=== PATIENT | female | born 1990 | race African-American/Black ===

== ENCOUNTER 2017-10-30 09:47 | Emergency (ER) | payer SELFPAY ==
--- NOTE | 2017-10-30 10:09 | ER Document Report ---
HPI - HPI Pain Level: 2 Notes: Patient is a 27-year-old female no significant past medical history presents ED complaining of red swollen area underneath her right axilla 4-5 days. Patient states that it was draining earlier in the week, but that has since stopped and has become swollen. Patient has not noticed any red streaks. She still eating and drinking without any difficulties. Denies any history of MRSA or IV drug use. Denies any drug allergies. Denies any headache, fever, neck pain, URI, sore throat, chest pain, palpitations, syncope, cough, shortness of breath, wheeze, dyspnea, abdominal pain, nausea/vomiting/diarrhea,dysuria, hematuria. - ROS Notes: REVIEW OF SYSTEMS: CONSTITUTIONAL : Denies fever, chills, or sweats. Denies recent illness. EENT: Denies eye, ear, throat, or mouth pain or symptoms. Denies nasal or sinus congestion or discharge. Denies throat, tongue, or mouth swelling or difficulty swallowing. CARDIOVASCULAR: Denies chest pain. Denies palpitations or racing or irregular heart beat. RESPIRATORY: Denies cough, cold, or chest congestion. Denies shortness of breath, difficulty breathing, or wheezing. GASTROINTESTINAL: Denies abdominal pain or distention. Denies nausea, vomiting , or diarrhea. GENITOURINARY: Denies difficulty urinating, painful urination, burning, frequency, blood in urine, or discharge. MUSCULOSKELETAL: Denies back or neck pain or stiffness. Denies joint pain or swelling. SKIN: see hpi NEUROLOGICAL: Denies dizziness or lightheadedness. Denies headache. Denies weakness or paralysis or loss of use of either side. Denies sensory loss, numbness, or tingling. ALL OTHER SYSTEMS REVIEWED AND NEGATIVE. Dictation was performed using [employer] recognition software - CONSTITUTIONAL Constitutional: DENIES: Fever, Chills - REPRODUCTIVE Reproductive: REPORTS: : - MUSCULOSKELETAL Musculoskeletal: DENIES: Extremity pain Past Medical History - Social History Smoking Status: Never Smoker Chew tobacco use (# tins/day): No Frequency of alcohol use: None Drug Abuse: None Family History: Reviewed & Not Pertinent Patient has suicidal ideation: No Patient has homicidal ideation: No Renal/ Medical History: Denies: Hx Peritoneal Dialysis - Immunizations Hx Diphtheria, Pertussis, Tetanus Vaccination: Yes Vertical Provider Document - CONSTITUTIONAL Agree With Documented VS: Yes Notes: PHYSICAL EXAMINATION: GENERAL: Well-appearing, well-nourished and in no acute distress. NECK: Normal range of motion, supple without lymphadenopathy LUNGS: Breath sounds clear to auscultation bilaterally and equal. No wheezes rales or rhonchi. HEART: Regular rate and rhythm without murmurs, rubs, gallops. Musculoskeletal: Rt UE: FROM to passive/active. Strength 5+/5. Extremities: No cyanosis, clubbing, or edema b/l. Peripheral pulses 2+. Capillary refill less than 3 seconds. NEUROLOGICAL: Cranial nerves grossly intact. Normal speech, normal gait. Normal sensory, motor exams PSYCH: Normal mood, normal affect. SKIN: + abscess rt axilla approx 2cm diameter. + tenderness and fluid pocket noted. No red streaks or purulence. - INFECTION CONTROL TRAVEL OUTSIDE OF THE [place] IN LAST 30 DAYS: No - RESPIRATORY O2 Sat by Pulse Oximetry: 97 Course - Re-evaluation Re-evalutation: 10/30/17 10:50 Patient is an afebrile, well-hydrated, 27-year-old female who presents ED with an abscess to her right axilla. Vitals are stable. PE is otherwise unremarkable. Incision and drainage was performed successfully without any complications. Wound culture obtained. Wound dressing placed and wound instructions reviewed. I will send her home with a prescription for Keflex and Bactrim to take as directed. Conservative measures for symptoms otherwise. Recheck with your PCM in 2-3 days for a wound check and possible packing replacement. Return to the ED with any worsening/concerning symptoms otherwise as reviewed in discharge. Patient is in agreement. - Vital Signs Vital signs: Temp Pulse Resp BP Pulse Ox 98.7 F 110 H 20 141/86 H 97 10/30/17 09:52 10/30/17 09:52 10/30/17 09:52 10/30/17 09:52 10/30/17 09:52 Procedures - Incision and Drainage Right Arm Time completed: 10:45 Type: Simple Anesthetic type: 1% Lidocaine mL's of anesthetic: 5 Blade size: 11 I&D procedure: Iodoform packing placed, Sterile dressing applied, Other - chlorhexadine Incision Method: Incision made by scalpel Amount/type of drainage: moderate purulent Notes: 10/30/17 10:08 Pt tolerated procedure well no complications packing placed Discharge - Discharge Clinical Impression: Abscess Condition: Stable Disposition: HOME, SELF-CARE Instructions: Abscess ([facility]), Cephalexin ([facility]), Post Incision and Drainage, Trimethoprim-Sulfa ([facility]) Additional Instructions: Do not shower or bathe for 24 hours. After 24 hours she may shower but no submersion of the wound under water. Keep the original dressing on the wound for 24 hours unless the drainage soaks through. Change the dressing daily thereafter and use a small amount of triple antibiotic ointment over the open wound. Return to the ED and/or your PCM in 2-3 days for recheck and continue direction for wound packing. Monitor for any signs of worsening pain or redness , streaks, and/or fever. Return to the ED if noticing any of the above symptoms or as needed. Take medications as directed. Prescriptions: Cephalexin Monohydrate [Keflex 500 mg Capsule] 500 mg PO BID #20 capsule Sulfamethoxazole/Trimethoprim [Bactrim Ds Tablet] 1 each PO BID #20 tablet Forms: Elevated Blood Pressure Referrals: [facility] [Provider Group] - Follow up as needed [facility] [Provider Group] - Follow up as needed
[2017-10-30 12:00] VITALS: BP 122/79
== END 2017-10-30 11:10 | disposition home or self-care (01) ==
LOC: ER 09:47
PROC: 0H9BXZZ Drainage of Right Upper Arm Skin, External Approach (ICD-10-PCS; principal; 2017-10-30)
DX: L02.411 Cutaneous abscess of right axilla (principal)
CPT/HCPCS: 99283; 87070; 87205; 87075; 87077; 10060; A6266

== ENCOUNTER 2017-11-03 13:47 | Emergency (ER) | payer SELFPAY ==
--- NOTE | 2017-11-03 14:21 | ER Document Report ---
ED Wound - General Chief Complaint: Wound Recheck Stated Complaint: RECHECK ABSCESS Time Seen by Provider: 11/03/17 14:06 Mode of Arrival: Ambulatory Information source: Patient Notes: Patient is a 27-year-old black female who comes back to the emergency room for a wound recheck. She had an incision and drainage done on the and was placed on Bactrim and Keflex. She comes back today for the recheck telling me that she has not filled antibiotics yet. She states it has been draining and she has been using moist warm compresses. She denies any current fever or other symptoms at this time. TRAVEL OUTSIDE OF THE [place] IN LAST 30 DAYS: No - HPI Patient complains to provider of: Other - Incision and drainage Occurred: Other - 4 days ago Onset/Duration: Persistent Quality of pain: Achy Pain Level: 1 Skin Temperature: Warm Skin Color: Normal Sensations intact: Yes Distal pulses present: Yes Associated Symptoms: Drainage - Related Data Allergies/Adverse Reactions: No Known Allergies Allergy (Verified 10/30/17 09:48) Past Medical History - General Information source: Patient Last Menstrual Period: Last week - Social History Smoking Status: Never Smoker Cigarette use (# per day): No Chew tobacco use (# tins/day): No Smoking Education Provided: No Family History: Reviewed & Not Pertinent Renal/ Medical History: Denies: Hx Peritoneal Dialysis - Immunizations Hx Diphtheria, Pertussis, Tetanus Vaccination: Yes Review of Systems - Review of Systems Constitutional: No symptoms reported EENT: No symptoms reported Cardiovascular: No symptoms reported Respiratory: No symptoms reported Gastrointestinal: No symptoms reported Genitourinary: No symptoms reported Female Genitourinary: No symptoms reported Musculoskeletal: No symptoms reported Skin: See HPI Hematologic/Lymphatic: No symptoms reported Neurological/Psychological: No symptoms reported -: Yes All other systems reviewed and negative Physical Exam - Vital signs Vitals: Temp Pulse Resp BP Pulse Ox 98.2 F 96 18 139/82 H 97 11/03/17 14:01 11/03/17 14:01 11/03/17 14:01 11/03/17 14:01 11/03/17 14:01 Interpretation: Hypertensive - General General appearance: Appears well In distress: None - Respiratory Respiratory status: No respiratory distress Chest status: Nontender Breath sounds: Normal. No: Decreased air movement, Nonproductive cough, Productive cough, Rales, Rhonchi, Stridor, Wheezing, Other - Cardiovascular Rhythm: Regular Heart sounds: Normal auscultation Murmur: No - Extremities General upper extremity: Normal inspection, Normal ROM General lower extremity: Normal inspection, Normal ROM - Skin Skin Temperature: Warm Skin Moisture: Dry Skin Color: Other - Examination of patient's right axilla shows her to be a draining pussy presentation. There is mild erythema around the external portion of the incision incision looks clean. Removal of the iodoform showed approximately 7-8 inches that was removed without any complications. The internal portion that is visualized of the incision looks beefy nice and clean and pressure applied around the open I&D area has no more drainage. Course - Vital Signs Vital signs: Temp Pulse Resp BP Pulse Ox 98.2 F 96 18 139/82 H 97 11/03/17 14:01 11/03/17 14:01 11/03/17 14:01 11/03/17 14:01 11/03/17 14:01 - Transfer of Care Notes: 11/03/17 14:24 As stated earlier in H&P patient has not filled the Bactrim and Keflex. She states she has not turned it in yet. We have had a long discussion on this and informed her that she will be back with an infected area again if she does not take the antibiotics. Given that said removal of the packing shows the wound to be healing. There is no more expressible material that this forced out. And again the area around the open incision shows nice beefy color flash. We will not repack it at this time secondary to go drainage began stopped and the wound appearing better. Discharge - Discharge Clinical Impression: Encounter for wound re-check Condition: Good Disposition: HOME, SELF-CARE Additional Instructions: Abscess You have an abscess (boil). This a pus-forming infection, usually due to staph. Some boils may be left to drain on their own, but most require lancing. From the time the tender lump first appears, it may be three or four days before the abscess is ready to delroy. Local heat and rest help at this stage of treatment. An antibiotic may prevent spread of the infection. Once the abscess is opened, packing may be placed into it. This is done so pus is not sealed inside by premature closure of the cavity. The packing will be removed at your follow-up visit or you may be advised to remove it yourself at home. Sometimes this packing must be replaced a few times during healing. The wound will heal with surprisingly little scar. Depending on the size and location of an abscess, healing can take one to four weeks. You may shower and wash the area around the incision site two or three times a day. Antibiotics may be prescribed, but are usually not necessary after an abscess has been drained. If you develop fever, chilling, worsening pain, or increasing swelling in the area, call the doctor or return immediately. As we discussed is highly important that you get the antibiotics and fill them. The wound actually looks fairly well for no antibiotics however if it closes up he would get reinfected. Continue using warm moist compresses at least 3 times a day. Should you have any problems or concerns return to ER for recheck. Forms: Elevated Blood Pressure
[2017-11-03 14:51] VITALS: BP 130/80
== END 2017-11-03 14:50 | disposition home or self-care (01) ==
LOC: ER 13:47
DX: L02.411 Cutaneous abscess of right axilla (principal)
CPT/HCPCS: 99282

== ENCOUNTER 2019-03-03 17:27 | Emergency (ER) | payer SELFPAY ==
--- NOTE | 2019-03-03 18:48 | ER Document Report ---
ED Medical Screen (RME) - General Chief Complaint: Abdominal Pain Stated Complaint: STOMACH PAIN Time Seen by Provider: 03/03/19 18:47 Mode of Arrival: Ambulatory Information source: Patient Notes: 28-year-old female presented to ED for complaint of abdominal pain with back pain and nausea times 2-3 days. She denies any vomiting or diarrhea. She denies any fevers. She is alert oriented respirations regular and unlabored lungs clear to auscultations abdomen soft with hyperactive bowel sounds. Patient does have pain to palpation bilaterally upper and lower. I have greeted and performed a rapid initial assessment of this patient. A comprehensive ED assessment and evaluation of the patient, analysis of test results and completion of medical decision making process will be conducted by an additional ED providers. TRAVEL OUTSIDE OF THE [place] IN LAST 30 DAYS: No - Related Data Allergies/Adverse Reactions: No Known Allergies Allergy (Verified 03/03/19 17:40) Past Medical History - Social History Chew tobacco use (# tins/day): No Frequency of alcohol use: None Drug Abuse: None Renal/ Medical History: Denies: Hx Peritoneal Dialysis - Immunizations Hx Diphtheria, Pertussis, Tetanus Vaccination: Yes Physical Exam - Vital signs Vitals: Temp Pulse Resp BP Pulse Ox 98.7 F 93 16 129/85 H 100 03/03/19 18:15 03/03/19 18:15 03/03/19 18:15 03/03/19 18:15 03/03/19 18:15 Course - Vital Signs Vital signs: Temp Pulse Resp BP Pulse Ox 98.7 F 93 16 129/85 H 100 03/03/19 18:15 03/03/19 18:15 03/03/19 18:15 03/03/19 18:15 03/03/19 18:15
[2019-03-03 19:02] LABS: APPEARANCE,URINE CLEAR; BILIRUBIN,URINE NEGATIVE (NEGATIVE); COLOR,URINE YELLOW; GLUCOSE, URINE NEGATIVE (NEGATIVE); KETONES,URINE NEGATIVE (NEGATIVE); LEUKOCYTE ESTERASE,URINE SMALL (NEGATIVE); NITRITE,URINE NEGATIVE (NEGATIVE); PROTEIN,URINE NEGATIVE (NEGATIVE); URINE SPECIFIC GRAVITY 1.008; UROBILINOGEN,URINE NEGATIVE mg/dL (<2.0)
[2019-03-03 19:29] LABS: ABSOLUTE BASOPHILS # (AUTO) 0.1 10^3/uL (0.0-0.2); ABSOLUTE EOSINOPHILS # (AUTO) 0.1 10^3/uL (0.0-0.6); ABSOLUTE MONOCYTES (AUTO) 0.5 10^3/uL (0.1-1.4); ABSOLUTE NEUT (AUTO) 6.4 10^3/uL (1.7-8.2); BASOPHILS % (AUTO) 0.6 % (0-2); EOSINOPHILS % (AUTO) 0.7 % (0-6); HEMATOCRIT 34.2 % (36.0-47.0); HEMOGLOBIN 11.5 g/dL (12.0-15.5); LYMPHOCYTES % (AUTO) 22.1 % (13-45); MEAN CORPUSCULAR HEMOGLOBIN 25.4 pg (27.0-33.4); MEAN CORPUSCULAR HGB CONC 33.5 g/dL (32.0-36.0); MEAN CORPUSCULAR VOLUME 76 fl (80-97); MONOCYTES % (AUTO) 5.9 % (3-13); PLATELET COUNT 271 10^3/uL (150-450); RED BLOOD COUNT 4.52 10^6/uL (3.72-5.28); RED CELL DISTRIBUTION WIDTH 15.5 % (11.5-14.0); SEGMENTED NEUTROPHILS % (AUTO) 70.7 % (42-78); TOTAL CELLS COUNTED % (AUTO) 100 %; WHITE BLOOD COUNT 9.1 10^3/uL (4.0-10.5)
[2019-03-03 19:47] LABS: ALANINE AMINOTRANSFERASE 25 U/L (9-52); ALBUMIN 4.4 g/dL (3.5-5.0); ALKALINE PHOSPHATASE 64 U/L (38-126); ANION GAP 10 (5-19); ASPARTATE AMINO TRANSFERASE 17 U/L (14-36); BILIRUBIN,DIRECT 0.1 mg/dL (0.0-0.4); BILIRUBIN,TOTAL 1.7 mg/dL (0.2-1.3); BLOOD UREA NITROGEN 8 mg/dL (7-20); CALCIUM 9.5 mg/dL (8.4-10.2); CARBON DIOXIDE 25 mmol/L (22-30); CHLORIDE 105 mmol/L (98-107); GLUCOSE 101 mg/dL (75-110); POTASSIUM 4.1 mmol/L (3.6-5.0); TOTAL PROTEIN 8.2 g/dL (6.3-8.2)
--- NOTE | 2019-03-03 20:17 | ER Document Report ---
ED General - General Chief Complaint: Abdominal Pain Stated Complaint: STOMACH PAIN Time Seen by Provider: 03/03/19 18:47 Mode of Arrival: Ambulatory TRAVEL OUTSIDE OF THE [place] IN LAST 30 DAYS: No - HPI Notes: Patient is a 28-year-old female with no significant past medical history who presents emergency department complaining of generalized abdominal cramping and decreased appetite over the past 2-3 days. Patient states that she is still able to eat and drink without any worsening symptoms. She is urinating normally and still having bowel movements. Patient states her bowel movements are formed. Denies drug allergies. No melena or hematochezia. No surgical history to her abdomen. She has not had any vaginal discharge, odor, or bleeding. Patient states that most of her pain is above her bellybutton. Denies drug allergies. Denies any headache, fever, neck pain, URI, sore throat, chest pain, palpitations, syncope, cough, shortness of breath, wheeze, dyspnea, nausea/vomiting/diarrhea, urinary retention, dysuria, hematuria, loss of control of bowel or bladder, numbness/tingling, saddle anesthesia, muscle paralysis/weakness, or rash. - Related Data Allergies/Adverse Reactions: No Known Allergies Allergy (Verified 03/03/19 17:40) Past Medical History - General Information source: Patient - Social History Smoking Status: Never Smoker Chew tobacco use (# tins/day): No Frequency of alcohol use: None Drug Abuse: None Family History: Reviewed & Not Pertinent Patient has suicidal ideation: No Patient has homicidal ideation: No Renal/ Medical History: Denies: Hx Peritoneal Dialysis - Immunizations Hx Diphtheria, Pertussis, Tetanus Vaccination: Yes Review of Systems - Review of Systems -: Yes All other systems reviewed and negative Physical Exam - Vital signs Vitals: Temp Pulse Resp BP Pulse Ox 98.7 F 93 16 129/85 H 100 03/03/19 18:15 03/03/19 18:15 03/03/19 18:15 03/03/19 18:15 03/03/19 18:15 - Notes Notes: PHYSICAL EXAMINATION: GENERAL: Well-appearing, well-nourished and in no acute distress. HEAD: Atraumatic, normocephalic. EYES: Pupils equal round and reactive to light, extraocular movements intact, sclera anicteric, conjunctiva are normal. ENT: Nares patent and without discharge. oropharynx clear without exudates. No tonsilar hypertrophy or erythema. Moist mucous membranes. NECK: Normal range of motion, supple without lymphadenopathy LUNGS: Breath sounds clear to auscultation bilaterally and equal. No wheezes rales or rhonchi. HEART: Regular rate and rhythm without murmurs, rubs, gallops. ABDOMEN: Soft, nondistended abdomen. No guarding, no rebound. No masses appreciated. Normal bowel sounds present. No CVA tenderness bilaterally. + generalized tenderness, no focal tenderness at McBurney/east neg. No lower pelvic tenderness. Musculoskeletal: FROM to passive/active. Strength 5+/5. Extremities: No cyanosis, clubbing, or edema b/l. Peripheral pulses 2+. Capillary refill less than 3 seconds. NEUROLOGICAL: Normal speech, normal gait. PSYCH: Normal mood, normal affect. SKIN: Warm, Dry, normal turgor, no rashes or lesions noted. Course - Re-evaluation Re-evalutation: 03/03/19 21:09 Patient is an afebrile, well-hydrated, 28-year-old female who presents emergency department generalized abdominal pain and constipation. Vitals are acceptable without significant tachycardia, tachypnea, or hypoxia. PE is otherwise unremarkable. CBC, CMP, lipase, urinalysis, hCG, right upper quadrant ultrasound unremarkable. See KUB x-ray. Patient is nontoxic-appearing and is tolerating p.o. without difficulty. No further labs or imaging warranted. Low suspicion/risk for acute appendicitis, bowel obstruction, acute cholecystitis, acute cholangitis, perforated diverticulitis, incarcerated hernia, pancreatitis, perforated ulcer, peritonitis, sepsis, pelvic inflammatory disease, ectopic , tubo-ovarian abscess, ovarian torsion, or other systemic emergent co ndition at this time. Patient is aware that her condition can change from initial presentation and she needs to monitor symptoms closely and seek medical attention if any acute changes. Conservative measures otherwise for symptoms. Recheck with your PCM in 2-3 days. Consider consult with a clerical order filler. Return to the ED with any worsening/concerning symptoms otherwise as reviewed in discharge. Patient is in agreement. - Vital Signs Vital signs: Temp Pulse Resp BP Pulse Ox 98.7 F 93 16 129/85 H 100 03/03/19 18:15 03/03/19 18:15 03/03/19 18:15 03/03/19 18:15 03/03/19 18:15 - Laboratory Result Diagrams: 03/03/19 19:02 03/03/19 19:02 Laboratory results interpreted by me: 03/03/19 03/03/19 03/03/19 18:15 19:02 19:02 Hgb 11.5 L Hct 34.2 L MCV 76 L MCH 25.4 L RDW 15.5 H Total Bilirubin 1.7 H Urine Blood MODERATE H Ur Leukocyte Esterase SMALL H Discharge - Discharge Clinical Impression: Generalized abdominal pain Constipation Qualifiers: Constipation type: unspecified constipation type Qualified Code(s): K59.00 - Constipation, unspecified Condition: Stable Disposition: HOME, SELF-CARE Instructions: Abdominal Pain ([facility]), Constipation ([facility]) Additional Instructions: Maintain adequate fluid and food intake High fiber diet and increase water intake tylenol if needed Monitor for any worsening symptoms Make sure you are staying hydrated enough to urinate and have normal BM's Recheck with your PCM in 2-3 days Consider consult with Gastroenterology for ongoing/worsening symptoms Return to the ED with any worsening symptoms and/or development of fever, headache, chest pain, palpitations, syncope, shortness of breath, trouble breathing, abdominal pain, n/v/d, blood in stool/urine, weakness, or other worsening symptoms that are concerning to you. Prescriptions: Magnesium Citrate [Citrate of Magnesia 296 ml Bottle] 296 ml PO ONCE PRN #1 bottle PRN Reason: Forms: Elevated Blood Pressure Referrals: HORTENSIA CASH MD [ACTIVE STAFF] - Follow up as needed
[2019-03-03 20:32] LABS: LIPASE 106.7 U/L (23-300)
--- NOTE | 2019-03-03 21:05 | RADIOLOGY REPORT (SQ) ---
EXAM DESCRIPTION: XR ABDOMEN 1 VIEW (KUB) COMPLETED DATE/TME: 03/03/2019 20:13 CLINICAL HISTORY: 28 years, Female, gen. abd pain EXAM DESCRIPTION: CLINICAL HISTORY: gen. abd pain COMPARISON: None. FINDINGS: Single supine view of the abdomen was submitted. There is no evidence of bowel obstruction. There is no abnormal calcification within the abdomen. There is no acute osseous process visualized. Moderate stool is in the colon. IMPRESSION: Moderate stool.
--- NOTE | 2019-03-03 21:09 | RADIOLOGY REPORT (SQ) ---
EXAM DESCRIPTION: RadLex: US ABDOMEN LIMITED CLINICAL HISTORY: 28 years Female; abd pain TECHNIQUE: Right upper quadrant ultrasound was performed. COMPARISON: None. FINDINGS: Pancreas: Visualized portions are unremarkable. Liver:18.5 cm long Portal venous flow is hepatopedal, normal. Gallbladder: normal with no gallstones or sonographic evidence for acute cholecystitis. No pericholecystic fluid. No sonographic Vidal's sign. Common bile duct: 4 mm. Right kidney: 11.1 x 5 x 6 cm. In the midportion there is a 2.1 x 1.7 x 1.7 cm cystic lesion with punctate marginal calcification, Bosniak 2. No hydronephrosis. IMPRESSION: 1. Normal gallbladder. No sonographic evidence for cholecystitis or biliary obstruction. 2. 2.1 cm Bosniak 2 right renal cyst. No follow-up needed unless clinically indicated.
[2019-03-03 21:18] VITALS: BP 141/63
== END 2019-03-03 21:19 | disposition home or self-care (01) ==
LOC: ER 17:27
DX: K59.00 Constipation, unspecified (principal); R10.84 Generalized abdominal pain
CPT/HCPCS: 36415; 74018; 76705; 80053; 81001; 81025; 83690; 85025; 87086; 99284

== ENCOUNTER 2019-05-30 23:53 | Emergency (ER) | payer SELFPAY ==
[2019-05-31 00:34] VITALS: BP 119/84
--- NOTE | 2019-05-31 05:10 | ER Document Report ---
ED Medical Screen (RME) - General Chief Complaint: Headache Stated Complaint: DIZZINESS Time Seen by Provider: 05/31/19 05:07 Notes: 28-year-old female presents the emergency department with chief complaint of feeling dizzy severe headache and nausea. Patient does have a history of this type of headache but she said is never been accompanied by nausea. She said this is the worst headache that she has had, is typical of previous headaches, increased in intensity, was not maximum at onset. Denies any vision changes, denies fever or recent illness, denies neck stiffness, acute shortness of breath or chest pain, denies abdominal pain, denies urinary symptoms. No other complaints I have greeted and performed a rapid initial assessment of this patient. A comprehensive ED assessment and evaluation of the patient, analysis of test res ults and completion of medical decision making process will be conducted by an additional ED providers. TRAVEL OUTSIDE OF THE [place] IN LAST 30 DAYS: No - Related Data Allergies/Adverse Reactions: No Known Allergies Allergy (Verified 03/03/19 17:40) Past Medical History Renal/ Medical History: Denies: Hx Peritoneal Dialysis - Immunizations Hx Diphtheria, Pertussis, Tetanus Vaccination: Yes Physical Exam - Vital signs Vitals: Temp Pulse Resp BP Pulse Ox 98.2 F 72 20 119/84 99 05/31/19 00:29 05/31/19 00:29 05/31/19 00:29 05/31/19 00:29 05/31/19 00:29 - Notes Notes: PHYSICAL EXAMINATION: Reviewed vital signs and charting by RN GENERAL: Alert, interacts well. No acute distress. HEAD: Normocephalic, atraumatic. EYES: Pupils equal and round. Extraocular movements intact. ENT: Oral mucosa moist, tongue midline. NECK: Full range of motion. Trachea midline. LUNGS: Clear to auscultation bilaterally, no wheezes, rales, or rhonchi. No respiratory distress. HEART: Regular rate and rhythm. No murmur EXTREMITIES: Moves all 4 extremities spontaneously. No edema, No cyanosis NEURO: A &O X 3, normal speech, normal gailt, PERRL, EOMI, SILT, follows commands in all 4 extremities, no gross abnormalities of cranial nerves, no focal neuro deficits, no pronator drift, [id number] testing normal, rapid alternating hand movements normal, [id number] normal, inlayer silver strength 5/5 bilateral, 5/5 strength in both proximal and distal upper and lower extremities PSYCH: Normal affect, normal mood. SKIN: Warm, dry, normal turgor. No rashes or lesions noted. Course - Vital Signs Vital signs: Temp Pulse Resp BP Pulse Ox 98.2 F 72 20 119/84 99 05/31/19 00:29 05/31/19 00:29 05/31/19 00:29 05/31/19 00:05/31/19 00:29
[2019-05-31 05:54] LABS: APPEARANCE,URINE SLIGHTLY-CLOUDY; BILIRUBIN,URINE NEGATIVE (NEGATIVE); COLOR,URINE YELLOW; GLUCOSE, URINE NEGATIVE (NEGATIVE); KETONES,URINE NEGATIVE (NEGATIVE); LEUKOCYTE ESTERASE,URINE NEGATIVE (NEGATIVE); NITRITE,URINE NEGATIVE (NEGATIVE); PROTEIN,URINE NEGATIVE (NEGATIVE); URINE SPECIFIC GRAVITY 1.014
[2019-05-31 06:06] LABS: ABSOLUTE EOSINOPHILS # (AUTO) 0.2 10^3/uL (0.0-0.6); ABSOLUTE LYMPHOCYTES (AUTO) 2.8 10^3/uL (0.5-4.7); ABSOLUTE MONOCYTES (AUTO) 0.4 10^3/uL (0.1-1.4); ABSOLUTE NEUT (AUTO) 2.5 10^3/uL (1.7-8.2); BASOPHILS % (AUTO) 0.6 % (0-2); EOSINOPHILS % (AUTO) 3.4 % (0-6); HEMATOCRIT 35.9 % (36.0-47.0); HEMOGLOBIN 11.5 g/dL (12.0-15.5); LYMPHOCYTES % (AUTO) 47.4 % (13-45); MEAN CORPUSCULAR HEMOGLOBIN 24.6 pg (27.0-33.4); MEAN CORPUSCULAR VOLUME 77 fl (80-97); MONOCYTES % (AUTO) 7.2 % (3-13); PLATELET COUNT 291 10^3/uL (150-450); RED BLOOD COUNT 4.67 10^6/uL (3.72-5.28); RED CELL DISTRIBUTION WIDTH 15.5 % (11.5-14.0); SEGMENTED NEUTROPHILS % (AUTO) 41.4 % (42-78); TOTAL CELLS COUNTED % (AUTO) 100 %
[2019-05-31 06:15] LABS: ALANINE AMINOTRANSFERASE 20 U/L (9-52); ALBUMIN 4.7 g/dL (3.5-5.0); ALKALINE PHOSPHATASE 72 U/L (38-126); ANION GAP 13 (5-19); ASPARTATE AMINO TRANSFERASE 24 U/L (14-36); BILIRUBIN,DIRECT 0.4 mg/dL (0.0-0.4); BILIRUBIN,TOTAL 0.6 mg/dL (0.2-1.3); BLOOD UREA NITROGEN 5 mg/dL (7-20); CALCIUM 9.4 mg/dL (8.4-10.2); CARBON DIOXIDE 26 mmol/L (22-30); CHLORIDE 103 mmol/L (98-107); GLUCOSE 103 mg/dL (75-110); SODIUM 142.1 mmol/L (137-145); TOTAL PROTEIN 8.5 g/dL (6.3-8.2)
--- NOTE | 2019-05-31 08:04 | ER Document Report ---
ED General - General Chief Complaint: Headache Stated Complaint: DIZZINESS Time Seen by Provider: 05/31/19 05:07 Primary Care Provider: [facility] [Provider Group] - Follow up in 3-5 days Notes: Patient is a 28-year-old female that presents to the emergency department for chief complaint of headache. Patient states that her headache started yesterday, described as on the left side of her head, somewhat behind her eye, with associated nausea and lightheadedness. She states she has had headaches similar to this in the past but did not have the associated lightheadedness that she wanted to be evaluated. She reports that her headache is improved since presenting to the emergency department, but still present, lightheadedness is completely resolved at this point, but still having headache she describes as a 3 out of 10 describes as an aching sensation behind the left eye. She is otherwise healthy, denies any recent fevers, chills, night sweats, ear pain, chest pain, shortness of breath or difficulty breathing. Past Medical History: Denies chronic medical conditions Past Surgical History: Denies surgical history Social History: Denies tobacco, alcohol or drug use. Family History: Reviewed and noncontributory for presenting illness Allergies: Reviewed, see documented allergy list. REVIEW OF SYSTEMS: Other than noted above, the 12 point review of systems was reviewed with the patient and were negative, all pertinent findings are included in the HPI. PHYSICAL EXAMINATION: Vital signs reviewed, nursing noted reviewed. GENERAL: Well-appearing, well-nourished and in no acute distress. HEAD: Atraumatic, normocephalic. EYES: Eyes appear normal, sclera anicteric, conjunctiva are normal. EOMI, PERRLA ENT: Moist mucous membranes. No sinus tenderness to palpation, TMs appear no rmal bilaterally, oropharynx appears normal, no tonsillar edema or exudates noted. NECK: Normal range of motion, supple without lymphadenopathy LUNGS: Breath sounds clear to auscultation bilaterally and equal. No wheezes rales or rhonchi. HEART: Regular rate and rhythm without murmurs EXTREMITIES: Nontender, good range of motion, no pitting or edema. NEUROLOGICAL: No focal neurological deficits. Moves all extremities spontaneously Motor and sensory grossly intact on exam. PSYCH: Normal mood, normal affect. SKIN: Warm, Dry, normal turgor, no rashes or lesions noted on exposed skin TRAVEL OUTSIDE OF THE [place] IN LAST 30 DAYS: No - Related Data Allergies/Adverse Reactions: No Known Allergies Allergy (Verified 03/03/19 17:40) Past Medical History - Social History Smoking Status: Never Smoker Chew tobacco use (# tins/day): No Frequency of alcohol use: None Drug Abuse: None Family History: Reviewed & Not Pertinent Patient has suicidal ideation: No Patient has homicidal ideation: No Neurological Medical History: Reports: Hx Migraine Renal/ Medical History: Denies: Hx Peritoneal Dialysis - Immunizations Hx Diphtheria, Pertussis, Tetanus Vaccination: Yes Physical Exam - Vital signs Vitals: Temp Pulse Resp BP Pulse Ox 98.2 F 72 20 119/84 99 05/31/19 00:29 05/31/19 00:29 05/31/19 00:29 05/31/19 00:29 05/31/19 00:29 Course - Re-evaluation Re-evalutation: Patient seen and examined vital signs reviewed. Laboratory data and/or imaging were ordered as appropriate for the patient's presenting symptoms and complaint, with consideration of any critical or life threatening conditions that may be associated with their obtained history and e xam as noted above. Patient was treated with Fioricet, and Zofran after negative hCG Results were reviewed when available and demonstrated unremarkable blood work, only mild anemia, that was ordered in triage. The patient was re-evaluated and was stable and improved Evaluation was most consistent with headache, nonspecific, the presenting symptoms, or not consistent with concern for intracranial causes of headache such as subarachnoid hemorrhage, or meningitis, no signs of meningismus on exam, the pattern and onset of the headache are not concerning for subarachnoid hemorrhage type headache, and headache is similar in pattern to the patient's prior headache she is had in the past. Will prescribe Zofran and Fioricet and follow-up with primary care. Results were discussed with the patient at this point, after careful consideration I feel that that patient can be discharged from the emergency department, the patient was educated treatments and reasons to return to the emergency department based on their presumed diagnosis as noted above, they were advised to followup with a primary care physician in 2-3 days. Patient was agreeable to plan of care. *Note is created using voice recognition software and may contain spelling, syntax or grammatical errors. Laboratory 05/31/19 05/31/19 05/31/19 05:25 05:25 05:25 WBC 6.0 RBC 4.67 Hgb 11.5 L Hct 35.9 L MCV 77 L MCH 24.6 L MCHC 32.0 RDW 15.5 H Plt Count 291 Seg Neutrophils % 41.4 L Lymphocytes % 47.4 H Monocytes % 7.2 Eosinophils % 3.4 Basophils % 0.6 Absolute Neutrophils 2.5 Absolute Lymphocytes 2.8 Absolute Monocytes 0.4 Absolute Eosinophils 0.2 Absolute Basophils 0.0 Sodium 142.1 Potassium 4.0 Chloride 103 Carbon Dioxide 26 Anion Gap 13 BUN 5 L Creatinine 0.61 Est GFR ( Amer) > 60 Est GFR (Non-Af Amer) > 60 Glucose 103 Calcium 9.4 Total Bilirubin 0.6 Direct Bilirubin 0.4 Neonat Total Bilirubin Not Reportable Neonat Direct Bilirubin Not Reportable Neonat Indirect Bili Not Reportable AST 24 ALT 20 Alkaline Phosphatase 72 Total Protein 8.5 H Albumin 4.7 Serum HCG, Qual NEGATIVE Urine Color Urine Appearance Urine pH Ur Specific [place] Urine Protein Urine Glucose (UA) Urine Ketones Urine Blood Urine Nitrite Urine Bilirubin Urine Urobilinogen Ur Leukocyte Esterase Urine WBC (Auto) Urine RBC (Auto) U Hyaline Cast (Auto) Urine Bacteria (Auto) Squamous Epi Cells Auto Urine Mucus (Auto) Urine Ascorbic Acid 05/31/19 05:26 WBC RBC Hgb Hct MCV MCH MCHC RDW Plt Count Seg Neutrophils % Lymphocytes % Monocytes % Eosinophils % Basophils % Absolute Neutrophils Absolute Lymphocytes Absolute Monocytes Absolute Eosinophils Absolute Basophils Sodium Potassium Chloride Carbon Dioxide Anion Gap BUN Creatinine Est GFR ( Amer) Est GFR (Non-Af Amer) Glucose Calcium Total Bilirubin Direct Bilirubin Neonat Total Bilirubin Neonat Direct Bilirubin Neonat Indirect Bili AST ALT Alkaline Phosphatase Total Protein Albumin Serum HCG, Qual Urine Color YELLOW Urine Appearance SLIGHTLY-CLOUDY Urine pH 6.0 Ur Specific [place] 1.014 Urine Protein NEGATIVE Urine Glucose (UA) NEGATIVE Urine Ketones NEGATIVE Urine Blood SMALL H Urine Nitrite NEGATIVE Urine Bilirubin NEGATIVE Urine Urobilinogen 2.0 H Ur Leukocyte Esterase NEGATIVE Urine WBC (Auto) 6 Urine RBC (Auto) 1 U Hyaline Cast (Auto) 1 Urine Bacteria (Auto) TRACE Squamous Epi Cells Auto 1 Urine Mucus (Auto) FEW Urine Ascorbic Acid NEGATIVE - Vital Signs Vital signs: Temp Pulse Resp BP Pulse Ox 98.2 F 72 20 119/84 99 05/31/19 00:29 05/31/19 00:29 05/31/19 00:29 05/31/19 00:29 05/31/19 00:29 - Laboratory Result Diagrams: 05/31/19 05:25 05/31/19 05:25 Laboratory results interpreted by me: 05/31/19 05/31/19 05/31/19 05:25 05:25 05:26 Hgb 11.5 L Hct 35.9 L MCV 77 L MCH 24.6 L RDW 15.5 H Seg Neutrophils % 41.4 L Lymphocytes % 47.4 H BUN 5 L Total Protein 8.5 H Urine Blood SMALL H Urine Urobilinogen 2.0 H Discharge - Discharge Clinical Impression: Headache Qualifiers: Headache type: unspecified Headache chronicity pattern: unspecified pattern Intractability: not intractable Qualified Code(s): R51 - Headache Condition: Stable Disposition: HOME, SELF-CARE Instructions: Headache ([facility]) Additional Instructions: Please take the medication as directed for your headache, if needed, and please follow-up with a primary care physician, one has been listed with your paperwork. Prescriptions: Butalb/Acetaminophen/Caffeine [Fioricet (50-325-40 mg) Tablet] 1 tab PO Q6H PRN #12 tab PRN Reason: headache Ondansetron [Zofran Odt 4 mg Tablet] 1 tab PO Q8H PRN #15 tab.rapdis PRN Reason: For Nausea/Vomiting Referrals: [facility] [Provider Group] - Follow up in 3-5 days
[2019-05-31] MEDS ORDERED: ONDANSETRON 4 MG TAB.RAPDIS PO ONE (08:05)
[2019-05-31] MEDS ORDERED: BUTALB/ACETAMINOPHEN/CAFFEINE 1 TAB EACH PO ONE (08:05)
== END 2019-05-31 09:05 | disposition home or self-care (01) ==
LOC: ER 23:53
DX: R51 Headache (principal); R42 Dizziness and giddiness
CPT/HCPCS: 99284; 36415; 84703; 85025; 80053; 81001; J3490; S0119

== ENCOUNTER 2019-06-23 02:55 | Emergency (ER) | payer SELFPAY ==
[2019-06-23] MEDS ORDERED: MECLIZINE HCL 25 MG TABLET PO ONE (03:25)
[2019-06-23 03:56] LABS: APPEARANCE,URINE SLIGHTLY-CLOUDY; BILIRUBIN,URINE NEGATIVE (NEGATIVE); COLOR,URINE YELLOW; GLUCOSE, URINE NEGATIVE (NEGATIVE); KETONES,URINE NEGATIVE (NEGATIVE); LEUKOCYTE ESTERASE,URINE NEGATIVE (NEGATIVE); NITRITE,URINE NEGATIVE (NEGATIVE); PROTEIN,URINE NEGATIVE (NEGATIVE); URINE SPECIFIC GRAVITY 1.021
--- NOTE | 2019-06-23 04:13 | ER Document Report ---
Entered by NATHAN COHEN SCRIBE 06/23/19 0328 Acting as scribe for:MANJEET GONZALEZ MD ED General - General Chief Complaint: Dizziness Stated Complaint: LIGHT HEADEDNESS Time Seen by Provider: 06/23/19 03:17 Notes: Patient is a 28-year-old female presenting to the emergency department complaining of multiple symptoms. Patient states that she has been experiencing dizziness that started today, she has been nauseous for 2 days ago, she has been feeling lightheaded also. Patient states that her last menstrual period was May 23, 2019, she does not know if she is or not. Patient denies having any fever or any cough. TRAVEL OUTSIDE OF THE [place] IN LAST 30 DAYS: No - Related Data Allergies/Adverse Reactions: No Known Allergies Allergy (Verified 03/03/19 17:40) Past Medical History - General Information source: Patient - Social History Smoking Status: Never Smoker Cigarette use (# per day): No Chew tobacco use (# tins/day): No Frequency of alcohol use: None Drug Abuse: None Family History: Reviewed & Not Pertinent Patient has suicidal ideation: No Patient has homicidal ideation: No - Medical History Medical History: Negative Neurological Medical History: Reports: Hx Migraine - Immunizations Hx Diphtheria, Pertussis, Tetanus Vaccination: Yes Review of Systems - Review of Systems Constitutional: See HPI. denies: Fever EENT: No symptoms reported Cardiovascular: See HPI, Dizziness, Lightheaded Respiratory: See HPI. denies: Cough Gastrointestinal: See HPI, Nausea Genitourinary: No symptoms reported Female Genitourinary: No symptoms reported Musculoskeletal: No symptoms reported Skin: No symptoms reported Hematologic/Lymphatic: No symptoms reported Neurological/Psychological: No symptoms reported -: Yes All other systems reviewed and negative Physical Exam - Vital signs Vitals: Temp Pulse Resp BP Pulse Ox 98.4 F 87 20 137/86 H 100 06/23/19 03:11 06/23/19 03:11 06/23/19 03:11 06/23/19 03:11 06/23/19 03:11 - Notes Notes: Physical Exam: General: Alert, appears well. HEENT: Lateral gaze nystagmus. Atraumatic. PERRL. Extraocular movements intact. Oropharynx clear. Neck: Supple. Non-tender. Respiratory: No respiratory distress. Clear and equal breath sounds bilaterally. Cardiovascular: Regular rate and rhythm. Abdominal: Normal Inspection. Non-tender. No distension. Normal Bowel Sounds. Back: Non-tender. No deformity or step off. Extremities: Moves all four extremities. Upper extremities: Normal inspection. Normal ROM. Lower extremities: Normal inspection. No edema. Normal ROM. Neurological: Normal cognition. AAOx4. Normal speech. Psychological: Normal affect. Normal Mood. Skin: Warm. Dry. Normal color. Course - Re-evaluation Re-evalutation: 06/23/19 05:00 She reports that her dizziness is somewhat better at this time. I had her sit up and look back and forth and up and down rapidly, and she confirms that it does feel better than prior to the meclizine. - Vital Signs Vital signs: Temp Pulse Resp BP Pulse Ox 98.4 F 82 20 124/92 H 100 06/23/19 03:11 06/23/19 03:15 06/23/19 03:15 06/23/19 03:15 06/23/19 03:15 - Laboratory Laboratory results interpreted by me: 06/23/19 03:35 Urine Urobilinogen 2.0 H Discharge - Discharge Clinical Impression: Vertigo, Nausea Condition: Stable Disposition: HOME, SELF-CARE Additional Instructions: Vertigo You have experienced an episode of vertigo -- a whirling dizziness which may be accompanied by nausea and vomiting or staggering. Vertigo is often caused by an irritation of the inner ear, in which case it is called labyrinthit is. It can also be a symptom of a degenerating inner ear, nerve damage, or brain injury. Your physician has evaluated you to determine whether any further testing is necessary. Vertigo is often treated with dramamine or meclizine. These medications are helpful, but stronger medication may be needed if you are vomiting. Rest in bed. You should not drive or operate machinery until completely better. It may take one to three weeks for recovery. If there are new symptoms, such as decreased hearing or vision, severe headache, weakness or faintness, or confusion, call the physician. Take medications as prescribed for your dizziness Be sure to drink plenty fluids and get plenty of rest. Take fall precautions until the dizzy sensation has completely gone away. Follow-up with a local medical doctor if not improving. RETURN TO THE EMERGENCY ROOM IF ANY NEW OR WORSENING SYMPTOMS. Prescriptions: Meclizine HCl [Antivert 25 mg Tablet] 25 mg PO TID PRN #25 tablet PRN Reason: Forms: Return to Work Scribe Attestation: 06/23/19 03:47 I personally performed the services described in the documentation, reviewed and edited the documentation which was dictated to the scribe in my presence, and it accurately records my words and actions. I personally performed the services described in the documentation, reviewed and edited the documentation which was dictated to the scribe in my presence, and it accurately records my words and actions.
[2019-06-23 05:16] VITALS: BP 104/87
== END 2019-06-23 05:20 | disposition home or self-care (01) ==
LOC: ER 02:55
DX: R42 Dizziness and giddiness (principal); R11.0 Nausea
CPT/HCPCS: 81001; 81025; 99284